=== PATIENT | female | born 1970 | race Hispanic/Latino ===

== ENCOUNTER → 2023-04-06 | Day surgery (SDC) | payer BC ==
--- NOTE | 2023-04-07 10:40 | RAD REPORT ---
EXAM DESCRIPTION: [facility] - 3D DIAG UNI F/U. RIGHT BREAST ULTRASOUND - 04/06/2023 1:00 pm CLINICAL HISTORY: R92.8, Z98.82 COMPARISON: 3D SCR HIRO BILAT W/CAD dated 03/12/2023; 3D SCR HIRO BILAT W/CAD dated 05/13/2018; 3D SCR HIRO BILAT W/CAD dated 03/20/2017; Follow Up Breast Axilla Comp dated 03/27/2023; BREAST/AXILLA, LIMITED konstantin ed 04/06/2023; 3D SCR HIRO FRANCIS W CAD dated 08/18/2013 TECHNIQUE: The patient initially presented show sound guided left breast core biopsy for a lesion th at was deemed suspicious on the ultrasound dated 03/27/2023. Upon sonographic close interrogation of the region of concern by myself and the technologist, no discrete mass was identified. Decision was m ines to forego the biopsy at this time. Findings were explained to the patient, and a decision to furt her assess the mammographic abnormality was made. Full field right CC, as well as spot compressed right CC and MLO mammographic views of the right [address] were obtained as a diagnostic study. 3D digital tomosynthesis was utilized. Computer-aided detecti on was utilized. FINDINGS: Breast composition: Scattered areas of fibroglandular density. Decreased conspicuity of the focal nodular asymmetry of concern in the mid to posterior right breast superiorly, slightly lateral to the nipple. The asymmetry shows an appearance similar to earlier mamm ograms of 05/13/2018 and 03/20/2017 on the full field CC view, with utilization of prior compression force. The asymmetry partially persists on some of the spot compressed images, and nearly completely effaces on 1 of the spot compressed CC images. No other dominant masses. No apparent architectural distortion, or suspicious microcalcifications. Sonographic evaluation of the right upper quadrant reveals a non focal region of dense breast tissue and nonfocal shadowing in the lateral right breast approximately at 9:30 o'clock position. No abnorma lities are noted in the remainder of the right upper quadrant. IMPRESSION: 1. No discrete mass or abnormal shadowing in the right upper quadrant to warrant a biops y at this time. 2. Non focal dense tissue and accumulation and non masslike shadowing seen approximately at 9:30 o'cl ock position. The this may result in the mammographic appearance. The mammographic nodule shows near complete effacement on 1 of the spot compressed CC images and decreased conspicuity of on the remaind er of the spot compressed images. RECOMMENDATION: Given the above findings, a follow-up mammogram and ultrasound of the right breast ar e recommended in 6 months for close evaluation. BI-RAD: 3, probably benign findings. ResultCode: PB6 *A negative x-ray report should not delay biopsy if a dominant or clinically suspicious mass is prese nt. 4.8% of cancers are not identified by x-ray. *A negative report may reinforce clinical impression. *Adenosis and dense breasts may obscure an underlying neoplasm. *False positive reports average 6-10%.
--- NOTE | 2023-04-07 22:25 | RAD REPORT ---
EXAM DESCRIPTION: EXAM DESCRIPTION: [facility] - 3D DIAG UNI F/U . RIGHT BREAST ULTRASOUND - 04/06/2023 1:0 0 CLINICAL HISTORY: R92.8, Z98.82 COMPARISON: 3D SCR HIRO BILAT W/CAD dated 03/12/2023; 3D SCR HIRO BILAT W/CAD dated 05/13/2018; 3D SCR HIRO BILAT W/CAD dated 03/20/2017; Follow Up Breast Axilla Comp dated 03/27/2023; BREAST/AXILLA, LIMITED konstantin ed 04/06/2023; 3D SCR HIRO FRANCIS W CAD dated 08/18/2013 TECHNIQUE: The patient initially presented show sound guided left breast core biopsy for a lesion th at was deemed suspicious on the ultrasound dated 03/27/2023. Upon sonographic close interrogation of the region of concern by myself and the technologist, no discrete mass was identified. Decision was m ines to forego the biopsy at this time. Findings were explained to the patient, and a decision to furt her assess the mammographic abnormality was made. Full field right CC, as well as spot compressed right CC and MLO mammographic views of the right [place] were obtained as a diagnostic study. 3D digital tomosynthesis was utilized. Computer-aided detecti on was utilized. FINDINGS: Breast composition: Scattered areas of fibroglandular density. Decreased conspicuity of the focal nodular asymmetry of concern in the mid to posterior right breast superiorly, slightly lateral to the nipple. The asymmetry shows an appearance similar to earlier mamm ograms of 05/13/2018 and 03/20/2017 on the full field CC view, with utilization of prior compression force. The asymmetry partially persists on some of the spot compressed images, and nearly completely effaces on 1 of the spot compressed CC images. No other dominant masses. No apparent architectural distortion, or suspicious microcalcifications. Sonographic evaluation of the right upper quadrant reveals a non focal region of dense breast tissue and nonfocal shadowing in the lateral right breast approximately at 9:30 o'clock position. No abnorma lities are noted in the remainder of the right upper quadrant. IMPRESSION: 1. No discrete mass or abnormal shadowing in the right upper quadrant to warrant a biops y at this time. 2. Non focal dense tissue and accumulation and non masslike shadowing seen approximately at 9:30 o'cl ock position. The this may result in the mammographic appearance. The mammographic nodule shows near complete effacement on 1 of the spot compressed CC images and decreased conspicuity of on the remaind er of the spot compressed images. RECOMMENDATION: Given the above findings, a follow-up mammogram and ultrasound of the right breast ar e recommended in 6 months for close evaluation. BI-RAD: 3, probably benign findings. ResultCode: PB6 1. A negative x-ray report should not delay biopsy if a dominant or clinically suspicious mass is pr esent. 4.8% of cancers are not identified by x-ray. A negative report may reinforce clinical impressi on. Adenosis and dense breasts may obscure an underlying neoplasm.
== END ==
LOC: DS 09:22
PROVIDERS: ATTEND Internal Medicine
DX: R92.8 Other abnormal and inconclusive findings on diagnostic imaging of breast (principal); Z53.8 Procedure and treatment not carried out for other reasons; Z98.82 Breast implant status
CPT/HCPCS: 77066; 76642; G0279